=== PATIENT | male | born 1950 | race Caucasian/White ===

== ENCOUNTER 2018-07-13 14:07 | Emergency (ER) | payer MEDICARE, OTHER ==
[2018-07-13] MEDS ORDERED: Ibuprofen TAB* 600 MG PO ONE (14:40)
[2018-07-13 15:46] VITALS: BP 124/52
--- NOTE | 2018-07-13 15:49 | ED ---
Lower Extremity - HPI Summary HPI Summary: Patient is a 67-year-old male presenting to the ED after falling from a ladder approximately 3 feet up. He denies any pain except for the right lateral foot. He denies any pain to the ankle. He has been ambulatory on this foot and stated he went golfing immediately following and was able to walk. However as he was walking, the pain began to worsen. He denies any ecchymosis or swelling to the area. Pain is most notably is to the dorsum and lateral side of the foot without pain to the calcaneus or ankle. He has never injured the area before. He remains infiltrate, however with pain. He has not taken any ibuprofen or Tylenol for relief. He states ice has been helping. - History of Current Complaint Chief Complaint: EDExtremityLower Stated Complaint: RIGHT FOOT INJURY PER PT Time Seen by Provider: 07/13/18 14:20 Hx Obtained From: Patient Mechanism Of Injury: Twisted Onset of Pain: Hours Onset/Duration: Hours Severity Initially: Moderate Severity Currently: Moderate Pain Intensity: 6 Pain Scale Used: 0-10 Numeric Timing: Constant Location: Is Discrete @ - right lateral foot pain Character Of Pain: Aching Aggravating Factor(s): Standing, Ambulation Alleviating Factor(s): Rest Able to Bear Weight: No - Risk Factors Gout Risk Factors: Negative DVT Risk Factors: Negative Septic Arthritis Risk Factor: Negative - Allergies/Home Medications Allergies/Adverse Reactions: Allergies Allergy/AdvReac Type Severity Reaction Status Date / Time Tetanus Vaccines and Toxoid Allergy Unknown Verified 07/13/18 14:15 Reaction Details PMH/Surg Hx/FS Hx/Imm Hx Previously Healthy: Yes - Immunization History Hx Pertussis Vaccination: No Immunizations Up to Date: Yes Infectious Disease History: No Infectious Disease History: Denies: Traveled Outside the [place] in Last 30 Days - Social History Occupation: Unemployed Lives: With Family Alcohol Use: Occasionally Hx Substance Use: No Substance Use Type: Reports: None Hx Tobacco Use: No Smoking Status (MU): Never Smoked Tobacco Review of Systems Constitutional: Negative Negative: Fever, Chills, Fatigue, Skin Diaphoresis Negative: Palpitations, Chest Pain Negative: Shortness Of Breath, Cough Genitourinary: Negative Positive: no symptoms reported, see HPI Positive: Arthralgia, Myalgia Skin: Negative - right lateral foot injury All Other Systems Reviewed And Are Negative: Yes Physical Exam Triage Information Reviewed: Yes Vital Signs On Initial Exam: Initial Vitals Temp Pulse Resp BP Pulse Ox 100.3 F 101 20 124/91 93 07/13/18 14:12 07/13/18 14:12 07/13/18 14:12 07/13/18 14:12 07/13/18 14:12 Vital Signs Reviewed: Yes Appearance: Positive: Well-Appearing, Well-Nourished Skin: Positive: Warm, Skin Color Reflects Adequate Perfusion Head/Face: Positive: Normal Head/Face Inspection Eyes: Positive: EOMI, Conjunctiva Clear Neck: Positive: Supple Respiratory/Lung Sounds: Positive: Clear to Auscultation, Breath Sounds Present Cardiovascular: Positive: Pulses are Symmetrical in both Upper and Lower Extremities Musculoskeletal: Positive: Pain @ - right lateral foot pain Neurological: Positive: Sensory/Motor Intact, Speech Normal Psychiatric: Positive: Affect/Mood Appropriate Diagnostics - Vital Signs Vital Signs Temp Pulse Resp BP Pulse Ox 07/13/18 14:12 100.3 F 101 20 124/91 93 - Laboratory Lab Statement: Any lab studies that have been ordered have been reviewed, and results considered in the medical decision making process. Lower Extremity Course/Dx - Course Course Of Treatment: Patient denies any back pain, hip pain, knee pain or ankle pain bilaterally from his 3 foot fall from a ladder. He states after falling from a ladder he was able to go golfing however the right lateral side of his foot continued to be in pain. X-ray obtained which shows no acute osseous injury. Patient is able to plantarflex and dorsiflex the ankle without discomfort. He is having discomfort to palpation over the dorsum and lateral sides over the deltoid ligament. He is able to relate, however he states he is only able to ambulate a few feet and is requesting crutches. Crutches are given and he is encouraged ice, ibuprofen, elevation and he is given an orthopedic follow-up. - Diagnoses Differential Diagnosis/HQI/PQRI: Positive: Sprain, Strain Provider Diagnoses: Right foot strain Discharge - Sign-Out/Discharge Documenting (check all that apply): Patient Departure Patient Received Moderate/Deep Sedation with Procedure: No - Discharge Plan Condition: Stable Disposition: HOME Patient Education Materials: Foot Sprain (ED) Referrals: Jaylen Brown MD [Medical Doctor] - No Primary Care Phys,NOPCP [Primary Care Provider] - Additional Instructions: Ibuprofen 600 mg 3 times daily Follow-up with orthopedics if symptoms persist Ice and elevation and rest will help - Billing Disposition and Condition Condition: STABLE Disposition: Home
== END 2018-07-13 15:45 | disposition home or self-care (01) ==
LOC: ED 14:07
DX: S96.911A Strain of unspecified muscle and tendon at ankle and foot level, right foot, initial encounter (principal); W11.XXXA Fall on and from ladder, initial encounter; Y92.019 Unspecified place in single-family (private) house as the place of occurrence of the external cause
CPT/HCPCS: 99282; A9270-GY